=== PATIENT | female | born 1955 | race Caucasian/White ===

== ENCOUNTER 2017-11-26 12:11 | Inpatient (IN) | payer BC, SELFPAY | END 2017-11-29 15:20 | disposition home health service (06) | DRG 470 | LOC: 2ND 11-29 15:40 | PROVIDERS: Admitting Provider Orthopaedic Surgery; Emergency Provider Emergency Medicine; Visit Provider Orthopaedic Surgery | DX: S72.011A Unspecified intracapsular fracture of right femur, initial encounter for closed fracture (principal); B96.1 Klebsiella pneumoniae [K. pneumoniae] as the cause of diseases classified elsewhere; N39.0 Urinary tract infection, site not specified; W18.39XA Other fall on same level, initial encounter; Y93.K1 Activity, walking an animal; Y92.480 Sidewalk as the place of occurrence of the external cause; I44.7 Left bundle-branch block, unspecified | CPT/HCPCS: 27130; 36415; 71010; 73502; 80048; 80053; 81001; 85025; 86850; 86900; 86901; 86920; 86922; 87086; 87088; 87186; 93005; 94760; 96374; 97162; 99285; C1713; C1776 ==

== ENCOUNTER → 2017-12-11 09:25 | Outpatient (CLI) | payer BC, SELFPAY ==
--- NOTE | 2017-12-11 09:30 | XR_ITS ---
XR hip RT 2-3V w/pelvis HISTORY: Follow-up hip replacement ITS.REASON: Right hip total arthroplasty ORDERING PHYSICIAN: Damian Dumont MD PATIENT AGE: 62 years COMPARISON: 11/26/2017 FINDINGS: Status post total hip replacement with no evidence of orthopedic complications. There is good alignment of the prosthesis with no evidence of dislocation or fracture. IMPRESSION: Status post total right hip replacement with no radiographic evidence of complication
== END ==
PROVIDERS: PCP Family Medicine; Visit Provider Orthopaedic Surgery
DX: Z47.89 Encounter for other orthopedic aftercare (principal)
CPT/HCPCS: 73502

== ENCOUNTER → 2018-01-08 10:01 | Outpatient (CLI) | payer BC, SELFPAY ==
--- NOTE | 2018-01-08 10:05 | XR_ITS ---
XR hip RT 2-3V w/pelvis HISTORY: ITS.REASON: Postop RT hip replacement ORDERING PHYSICIAN: Damian Dumont MD PATIENT AGE: 62 years COMPARISON: 12/11/2017 FINDINGS: No change status post total right hip replacement with good alignment. No fracture or dislocation. There is some increased density noted in the soft tissues superior to the greater trochanter and may be due to developing heterotopic bone formation. IMPRESSION: 1. Good alignment status post hip replacement. 2. Developing heterotopic bone formation in the greater trochanter region
== END ==
PROVIDERS: PCP Family Medicine; Visit Provider Orthopaedic Surgery
DX: Z47.89 Encounter for other orthopedic aftercare (principal)
CPT/HCPCS: 73502

== ENCOUNTER → 2018-04-08 08:56 | Outpatient (CLI) | payer BC, SELFPAY ==
--- NOTE | 2018-04-08 08:58 | XR_ITS ---
XR hip RT 2-3V w/pelvis HISTORY: Follow-up hip replacement ITS.REASON: 3 mth post op/DO NOT FROGLEG ORDERING PHYSICIAN: Damian Dumont MD PATIENT AGE: 62 years COMPARISON: 01/08/2018 FINDINGS: Status post total hip replacement with good alignment of acetabular and femoral components. There is mild heterotopic bone formation noted's superior to the greater trochanter and lateral to the acetabular component. IMPRESSION: 1. Good alignment total hip prosthesis. 2. Heterotopic bone formation
== END ==
PROVIDERS: PCP Family Medicine; Visit Provider Orthopaedic Surgery
DX: Z96.641 Presence of right artificial hip joint (principal)
CPT/HCPCS: 73502

== ENCOUNTER → 2018-06-11 08:43 | Outpatient (CLI) | payer BC, SELFPAY ==
--- NOTE | 2018-06-11 08:46 | XR_ITS ---
XR hip RT 2-3V w/pelvis HISTORY: Follow-up hip replacement ITS.REASON: S/P RIGHT TOTAL HIP ARTHROPLASTY ORDERING PHYSICIAN: Damian Dumont MD PATIENT AGE: 62 years COMPARISON: 04/08/2018 FINDINGS: Total right hip replacement once again noted in good position. Heterotopic bone noted along the lateral hip and superior to the greater trochanter as before. No acute fracture or dislocation. There is some mild sclerosis of the SI joint on the right inferiorly. IMPRESSION: 1. Status post right hip replacement with heterotopic bone formation overall not significant change. Good alignment of the prosthesis
== END ==
PROVIDERS: PCP Family Medicine; Visit Provider Orthopaedic Surgery
DX: Z96.641 Presence of right artificial hip joint (principal)
CPT/HCPCS: 73502

== ENCOUNTER 2022-07-13 08:10 | Emergency (ER) | payer BC, SELFPAY ==
--- NOTE | 2022-07-13 08:31 | XR_ITS ---
PROCEDURE INFORMATION: Exam: XR Right Clavicle, Complete Exam date and time: 07/13/2022 8:42 AM Age: 67 years old Clinical indication: Other: Clavicle; Patient HX: Pain after lifting packages at work Thursday, nkt TECHNIQUE: Imaging protocol: Radiologic exam of the Right clavicle. Complete exam. Views: Any number of views. COMPARISON: CR XR CHEST 2V 07/07/2019 9:28 AM FINDINGS: Bones/joints: No acute osseous pathology in the visualized right clavicle. Soft tissues: Unremarkable soft tissues. IMPRESSION: No acute osseous pathology in the visualized right clavicle.
[2022-07-13 08:38] VITALS: BP 172/76; PULSE 72; RESP 16; TEMP 36.4; O2SAT 97; BMI 25.8
--- NOTE | 2022-07-13 08:41 | HMH.EDUTC ---
[facility] [place] Clinical Impression: Muscle spasm Disposition: Home, Self-Care Condition on Discharge: Good Instructions: DI for Muscle Spasm, Muscle Strain Additional Instructions: *Ibuprofen von 6 hours with meal as needed for pain/inflammation *Not additional anti-inflammatory like motrin, aleve, advil with the above amount of ibuprofen. You can still take Tylenol every 4 hours as needed if you need something else for pain *Ice 20 minutes every 2 hours for the first 48 hours after the initial injury followed by moist heat every 20 minutes 3-4 times a day to affected area *Muscle relaxer every 8 hours as needed for muscle spasms but remember, it WILL cause drowsiness You cannot take it and drive, operate machinery or care for small children. *Keep this area active, no movement leads to more stiffness, However take it easy and avoid heavy lifting pushing or pulling *Follow up with you family doctor if no improvement for further treatment Prescriptions: Cyclobenzaprine HCl [Flexeril 10mg tablet] 10 mg PO Q8HP PRN 30 Days #90 tab PRN Reason: Muscle Spasm Transmission Status: Pending to [employer] #[id number] Referrals: Steffanie Sommers MD [Primary Care Provider] - As needed Time of Disposition: 09:16 Medical Decision Making - Chidi Inquiry Pt receiving controlled substance: No Chidi was queried for this patient: No Vital Signs: 07/13/22 08:38 Temperature 97.6 F Temperature Source Oral Pulse Rate [Left] 72 Respiratory Rate 16 Blood Pressure [Right Arm] 172/76 H Blood Pressure Mean [Right Arm] 108 02 Sat by Pulse Oximetry 97 - Radiology Data #1 Image(s): Clavicle Image Reviewed: Yes I have reviewed radiologist's interpretation IMPRESSION: No acute osseous pathology in the visualized right clavicle. [facility] [place] - General Stated complaint: right shoulder pain Time Seen by Provider: 07/13/22 08:41 Mode of Arrival: Ambulatory Source of Information: Patient Limitations: No Limitations Description of Symptoms (Recalled from Triage Doc. by RN): patient comes in with complaints of possible pulled muscle. patient states it is located by her collerbone, on top of shoulder on right side. 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 States that she feels like she may have pulled something in her right shoulder area States that she is having pain on her right collar bone area and in her shoulder muscle beside her neck States that she feels like she may have pulled something - Related Data Previous Rx's Medication Instructions Recorded Cyclobenzaprine HCl [Flexeril 10mg 10 mg PO Q8HP PRN 30 Days #90 tab 12/23/19 tablet] Cyclobenzaprine HCl [Flexeril 10mg 10 mg PO Q8HP PRN 30 Days #90 tab 07/13/22 tablet] Allergies Allergy/AdvReac Type Severity Reaction Status Date / Time Sulfa (Sulfonamide Allergy Intermediate ITCHING, Verified 07/13/22 08:41 Antibiotics) HIVES [SULFA (SULFONAMIDE ANTIBIOTICS)] - Worker's Comp Is this a Worker's Comp case?: No [facility] History - Hepatitis A Screen Attestation statement:: This patient has been screened for Hepatitis A risk factors. I have reviewed the patient's past medical history: Yes Laterality Cases: Right: Arthroscopy Hip, Total Hip Replacement Other Surgeries: Yes: Other (RT total hip) Amputation: No Fractures: Yes - Social History Smoking Status: Current every day smoker Tobacco Type: cigarettes # Packs/Day (cigarettes): 1 Alcohol Intake: current Alcohol Intake Frequency:: holidays/special occasions only Substance Use Type: denies use Occupational Status: employed Family Hx:: Non-contributory R
[2022-07-13 09:23] VITALS: BP 172/76; PULSE 72; RESP 16; TEMP 36.4
== END 2022-07-13 09:24 | disposition home or self-care (01) ==
PROVIDERS: Emergency Provider Nurse Practitioner; PCP Family Medicine
DX: M62.838 Other muscle spasm (principal)
CPT/HCPCS: 73000; 99212; G0463

== ENCOUNTER 2022-08-12 08:33 | Emergency (ER) | payer BC, SELFPAY ==
[2022-08-12 09:10] VITALS: BP 107/73; PULSE 81; RESP 19; TEMP 36.8; O2SAT 98; BMI 25.4
--- NOTE | 2022-08-12 09:16 | XR_ITS ---
FINAL REPORT CLINICAL HISTORY: congestion, cough, smoker, no surgeries COMPARISON: July 07, 2019 FINDINGS: Two views of the chest were obtained. The heart size and pulmonary vascularity are within normal limits. The mediastinum is normal. The lungs are hyperinflated consistent with COPD. There is mild scarring. There is no pneumothorax. The bony thorax is intact. IMPRESSION: No acute cardiopulmonary process. Reviewed, Interpreted and Dictated by Alphonso Hung III, MD Transcribed by Maximiliano Almonte Authenticated and [facility]
--- NOTE | 2022-08-12 09:29 | EXP.UTC ---
Discharge Plan Disposition Patient Disposition: Home, Self-Care Condition: Good Prescriptions Prescriptions: New etodolac 200 mg capsule 200 mg PO Q8H PRN (Reason: pain) Qty: 20 0RF No Action cyclobenzaprine 10 MG tablet 10 mg PO Q8HP PRN (Reason: Muscle Spasm) 30 Days Qty: 90 0RF cyclobenzaprine 10 MG tablet 10 mg PO Q8HP PRN (Reason: Muscle Spasm) 30 Days Qty: 90 0RF Referrals Follow up/Referrals: Steffanie Sommers MD [Primary Care Provider] - See instructions Activity Restrictions/Add. Instructions Additional Instructions/Restrictions: Continue taking Muscle relaxers as prescribed Warm compresses on Back may help Follow up with the Family Doctor if no improvement or any worsening symptoms Return if needed Straight to ER if any life threatening symptoms Clinical Impressions Clinical Impression: Muscle spasm Instructions Patient Instructions: DI for Muscle Spasm, Etodolac Discharge ED Provider: Brook Arredondo [facility] [place] General Stated complaint: back pain, no accident Mode of Arrival: Ambulatory Source of Information: Patient Limitations: No Limitations Time Seen by Provider: 08/12/22 09:29 Description of Symptoms (Recalled from Triage Doc. by RN): PATIENT C/O MUSCLE SPASMS IN BACK HEENT Symptoms (Recalled from RN notes): No Resp Symptoms (Recalled from RN notes): No Skin Symptoms (Recalled from RN notes): No MS Symptoms (Recalled from RN notes): Yes Functional Status (Recalled from RN notes): WNL History of Present Illness Provider Complaint: Patient states she was seen about a month ago for muscle spasms in her back States that she was given muscle relaxers and they have helped some but she is still having pain at times with certain movements States that she wanted to get a chest xray to make sure that she doesnt have pneumonia or something Denies known injury States that she has done some heavy lifting at work Related Data Previous Rx's Medication Instructions Recorded cyclobenzaprine 10 mg tablet 10 mg PO Q8HP PRN Muscle Spasm 30 12/23/19 days #90 tabs cyclobenzaprine 10 mg tablet 10 mg PO Q8HP PRN Muscle Spasm 30 07/13/22 days #90 tabs etodolac 200 mg capsule 200 mg PO Q8H PRN pain #20 caps 08/12/22 Allergies Allergy/AdvReac Type Severity Reaction Status Date / Time Sulfa (Sulfonamide Allergy Intermediate ITCHING, Verified 07/13/22 08:41 Antibiotics) HIVES [SULFA (SULFONAMIDE ANTIBIOTICS)] Worker's Comp Is this a Worker's Comp case?: No [facility] Medical History (Updated 08/12/22 @ 10:02 by Brook Arredondo APRN) Migraine Surgical History (Updated 08/12/22 @ 09:24 by Brittney Nowak, RN) History of bladder surgery History of right hip replacement Social History (Updated 08/12/22 @ 09:24 by Brittney Nowak RN) Smoking Status: Current every day smoker tobacco type: cigarettes packs per day: 1 alcohol intake: current substance use type: denies use current occupational status: employed Travel in the last 8 weeks: None ROS Obtained: Yes All systems reviewed & no additional complaints except as documented and Yes Systems reviewed as appropriate & no additional complaints except as documented ENT Ears, Nose, Mouth, and Throat: Reports system reviewed and no additional complaints, except as documented and Reports as per HPI Cardiovascular Cardiovascular: Reports system reviewed and no additional complaints, except as documented, Reports as per HPI, Denies chest pain, Denies dyspnea on exertion and Denies edema Respiratory Respiratory: Reports system reviewed and no additional complaints, except as documented, Reports as per HPI, Denies shortness of breath, Denies change in phlegm color, Denies chest congestion, Reports cough (reports is a smoker has everyday cough ) and Denies dyspnea on exertion Gastrointestinal Gastrointestingal: Reports system reviewed and no additional complaints, except as documented and as per HPI Musculoskeletal Mu
[2022-08-12 10:10] VITALS: BP 107/73; PULSE 81; RESP 19; TEMP 36.8; O2SAT 98
== END 2022-08-12 10:14 | disposition home or self-care (01) ==
PROVIDERS: Emergency Provider Nurse Practitioner; PCP Family Medicine
DX: M62.830 Muscle spasm of back (principal)
CPT/HCPCS: 71046; 99212; G0463

== ENCOUNTER 2022-11-03 19:41 | Emergency (ER) | payer BC, SELFPAY ==
[2022-11-03 19:42] VITALS: BP 154/82; PULSE 58; RESP 18; TEMP 37; O2SAT 98; BMI 25.3
--- NOTE | 2022-11-03 21:20 | ECG_ITS ---
APPROVED REPORT Exam: Resting ECG HR:56 bpm ECG Measurements Heart Rate 56 AXES NC 148 P 81 QRSd 144 QRS 84 QT 492 T 70 QTc 483 Conclusion SINUS BRADYCARDIA INTRAVENTRICULAR CONDUCTION DELAY [130+ ms QRS DURATION] ABNORMAL ECG UNCONFIRMED REPORT Electronically signed by : Ramez Hill MD 11/04/2022 20:55:14
--- NOTE | 2022-11-03 21:25 | XR_ITS ---
PROCEDURE INFORMATION: Exam: XR Chest Exam date and time: 11/03/2022 9:32 PM Age: 67 years old Clinical indication: Shortness of breath; Additional info: SOA TECHNIQUE: Imaging protocol: Radiologic exam of the chest. Views: 2 views. COMPARISON: CR XR CHEST 2V 08/12/2022 9:26 AM FINDINGS: Lungs: No evidence of pneumonia or interstitial edema. Pleural spaces: Unremarkable. No pleural effusion. No pneumothorax. Heart/Mediastinum: Unremarkable. No cardiomegaly. Bones/joints: Unremarkable. IMPRESSION: No evidence of pneumonia or interstitial edema.
[2022-11-03 21:32] LABS: Basophils # 0.1 K/mm3 (0-0.2); Basophils % 2.1 % (0.1-2.0); Eosinophils # 0.1 K/mm3 (0.0-0.4); Eosinophils % 3.5 % (0.1-12.0); Hematocrit 48.7 % (37.0-47.0); Hemoglobin 16.4 g/dL (12.2-16.2); Lymphocytes # 1.9 K/mm3 (0.7-4.5); Lymphocytes % 49.5 % (10-50); Mean Corpuscular HGB Conc 33.6 g/dL (31.8-35.4); Mean Corpuscular Hemoglobin 31.4 pg (27.0-31.2); Mean Corpuscular Volume 93.3 fl (81-99); Mean Platelet Volume 7.4 fl (7.4-10.4); Monocytes # 0.3 K/mm3 (0.1-1.0); Monocytes % 8.2 % (1.7-9.3); Neutrophils # 1.4 K/mm3 (1.8-7.8); Neutrophils % 36.7 % (37.0-80.0); Platelet Count 335 K/mm3 (142-424); Red Blood Count 5.22 M/mm3 (4.20-5.40); Red Cell Distribution Width 13.1 % (11.5-17.5); White Blood Count 3.8 K/mm3 (4.8-10.8)
[2022-11-03 21:32] LABS: Influenza A, PCR Not Detected (NotDetected); Influenza B, PCR Not Detected (NotDetected)
[2022-11-03 21:36] LABS: Alanine Aminotransferase 30 U/L (12-78); Albumin Level 4.8 g/dl (3.5-5.0); Albumin/Globulin Ratio 1.5 (1.1-1.8); Alkaline Phosphatase 132 U/L (38-126); Anion Gap 1.4 mEq/L (5-15); Aspartate Amino Transferase 39 U/L (14-36); Bilirubin,Total 0.5 mg/dl (0.2-1.3); Blood Urea Nitrogen 10 mg/dl (7-17); Calcium 10.1 mg/dl (8.4-10.2); Carbon Dioxide 28 mmol/L (22.0-30.0); Chloride 104 mmol/L (98-107); Creatinine Clearance Estimated 65 mL/min (50-200); Estimated Glomerular Filt Rate 84 ml/min (>60); GFR (African American) 102 ML/MIN (>60); Globulin 3.3 g/dL (1.3-3.2); Glucose 111 mg/dl (74-100); Potassium 3.4 mmoL/L (3.5-5.1); Sodium 130 mmol/L (136-145); Total Protein,Serum 8.1 g/dl (6.3-8.2)
[2022-11-03 21:41] LABS: C-Reactive Protein 4.6 mg/L (0-4)
[2022-11-03 21:54] LABS: Procalcitonin 0.044 ng/mL (0.0-2.0)
[2022-11-03 22:04] LABS: Troponin I < 0.01 ng/ml (0.00-0.034)
[2022-11-03 22:20] LABS: Coronavirus 19, PCR Detected (NotDetected)
[2022-11-03 22:21] LABS: Erythrocyte Sedimentation Rate 17 mm/hr (0-30)
--- NOTE | 2022-11-03 22:39 | HMH.EDSOB ---
Discharge Plan Disposition Patient Disposition: Home, Self-Care Chief Complaint: Shortness of Breath/Dyspnea Prescriptions Prescriptions: No Action etodolac 200 mg capsule 200 mg PO Q8H PRN (Reason: pain) Qty: 20 0RF cyclobenzaprine 10 MG tablet 10 mg PO Q8HP PRN (Reason: Muscle Spasm) 30 Days Qty: 90 0RF cyclobenzaprine 10 MG tablet 10 mg PO Q8HP PRN (Reason: Muscle Spasm) 30 Days Qty: 90 0RF Referrals Follow up/Referrals: Provider,Referral, MD [Primary Care Provider] - See instructions Clinical Impressions Clinical Impression: COVID-19 Instructions Patient Instructions: DI for COVID-19 (Suspected or Confirmed ) Discharge ED Provider: Red Echeverria Resp/SOB HPI General Chief Complaint: Shortness of Breath/Dyspnea Stated Complaint: SOA, h/a, weakness Time Seen by Provider: 11/03/22 22:39 Mode of Arrival: Ambulatory Source of Information: Patient Limitations: No Limitations Description of Symptoms (Recalled from ER Triage Doc. 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 Complaint: cough Onset (ago): day(s) Severity: moderate Consistency/Duration: intermittent Associated symptoms: denies other symptoms Treatment prior to arrival: none Related Data Home oxygen amount: none Previous Rx's Medication Instructions Recorded cyclobenzaprine 10 mg tablet 10 mg PO Q8HP PRN Muscle Spasm 30 12/23/19 days #90 tabs cyclobenzaprine 10 mg tablet 10 mg PO Q8HP PRN Muscle Spasm 30 07/13/22 days #90 tabs etodolac 200 mg capsule 200 mg PO Q8H PRN pain #20 caps 08/12/22 Allergies Allergy/AdvReac Type Severity Reaction Status Date / Time Sulfa (Sulfonamide Allergy Intermediate ITCHING, Verified 07/13/22 08:41 Antibiotics) HIVES [SULFA (SULFONAMIDE ANTIBIOTICS)] [facility] Disclaimer: The information contained in this section may have been updated after the patient was seen, as this information can be updated by other users. Medical History (Updated 11/03/22 @ 22:49 by Red Echeverria MD) Migraine Surgical History (Updated 08/12/22 @ 09:24 by Brittney Nowak RN) History of bladder surgery History of right hip replacement Social History (Updated 08/12/22 @ 09:24 by Brittney Nowak RN) Smoking Status: Current every day smoker tobacco type: cigarettes packs per day: 1 alcohol intake: current substance use type: denies use current occupational status: employed Travel in the last 8 weeks: None ROS Obtained: Yes All systems reviewed & no additional complaints except as documented Physical Exam General General appearance: alert Head Head exam: normocephalic Eye Eye exam: Present PERRL and EOMI ENT ENT exam: Present mucous membranes moist Neck Neck exam: Absent trachea midline Respiratory Respiratory exam: Absent respiratory distress Cardiovascular Cardiovascular exam: Present regular rate Abdominal Exam Abdominal exam: Present soft Extremities Exam Extremities exam: Present full ROM Neurological Exam Neurological exam: Present alert, oriented X3 and CN II-XII intact Psychiatric Psychiatric exam: Present normal affect Skin Skin exam: Absent rash Medical Decision Making Medical Records Medical records reviewed: Yes I reviewed the patient's medical records. Chidi Inquiry Pt receiving controlled substance: No Vital Signs: 11/03/22 19:42 Temperature 98.6 F Temperature Source Oral Pulse Rate [Right] 58 L Respiratory Rate 18 Blood Pressure [Right Arm] 154/82 H Blood Pressure Mean [Right Arm] 106 02 Sat by Pulse Oximetry 98 Lab Data Lab results reviewed: Yes I reviewed the patient's lab results. Lab Results 11/03/22 21:05: WBC 3.8 L, RBC 5.22, Hgb 16.4 H, Hct 48.7 H, MCV 93.3, MCH 31.4 H, MCHC 33.6, RDW 13.1, Plt Count 335, MPV 7.4, Neut % (Auto) 36.7 L, Lymph % (Auto) 49.5, Charlton % (Auto) 8.2, Eos % (Auto) 3.5, Baso % (Auto) 2.1
--- NOTE | 2022-11-03 22:50 | PC.NURSE ---
Dr. Echeverria at
[2022-11-03 23:08] VITALS: BP 125/78; PULSE 88; RESP 18; TEMP 36.8; O2SAT 98
[2022-11-03 23:13] VITALS: BP 149/78; PULSE 60; RESP 18; TEMP 37; O2SAT 98
== END 2022-11-03 23:15 | disposition home or self-care (01) ==
PROVIDERS: Emergency Provider Emergency Medicine
DX: U07.1 COVID-19 (principal)
CPT/HCPCS: 71046; 80053; 84145; 84484; 85025; 85651; 86140; 96365; 96375; 99284; 99285; C9803; J2405; U0003; U0005

== ENCOUNTER 2023-07-30 13:03 | Emergency (ER) | payer BC, SELFPAY ==
[2023-07-30 13:05] VITALS: BP 182/90; PULSE 105; RESP 19; TEMP 36.8; O2SAT 98; BMI 27.4
--- NOTE | 2023-07-30 13:22 | EXP.UTC ---
Discharge Plan Disposition Patient Disposition: Home, Self-Care Condition: Good Prescriptions Prescriptions: New ciprofloxacin HCl [Cipro] 500 mg tablet 500 mg PO BID 7 Days Qty: 14 0RF cyclobenzaprine 10 mg Tablet 10 mg PO BID PRN (Reason: Muscle Spasm) Qty: 20 0RF phenazopyridine [Pyridium] 200 mg tablet 200 mg PO Q8H 2 Days Qty: 6 0RF methylprednisolone 4 mg Tablets,Dose Pack 4 mg PO DIRECTED Qty: 21 0RF No Action etodolac 200 mg capsule 200 mg PO Q8H PRN (Reason: pain) Qty: 20 0RF ondansetron HCl 4 mg Tablet 4 mg PO Q8H PRN (Reason: Nausea And Vomiting) Qty: 30 0RF cyclobenzaprine 10 MG tablet 10 mg PO Q8HP PRN (Reason: Muscle Spasm) 30 Days Qty: 90 0RF cyclobenzaprine 10 MG tablet 10 mg PO Q8HP PRN (Reason: Muscle Spasm) 30 Days Qty: 90 0RF Referrals Follow up/Referrals: Provider,Referral, MD [Primary Care Provider] - See instructions Activity Restrictions/Add. Instructions Additional Instructions/Restrictions: Go home and rest. It would be best if you rested tomorrow too. No heavy lifting. No twisting. Take the oral medications as directed. The muscle relaxer (cyclobenzaprine--Flexeril) will make you drowsy, so don't drive or operate heavy machinery after taking it. Don't start the oral steroids (medrol dose pack) until tomorrow, since you had the shots in here today. Follow up with your regular doctor. GO TO THE ER FOR ANY WORSENING SYMPTOMS OR CONCERN, ESPECIALLY BOWEL OR BLADDER ISSUES, SADDLE AREA NUMBNESS, FEVER, ETC The pyridium will make your urine turn orange, this is an expected side effect. It will stain your clothes if it comes into contact with them. We will culture the urine. That will tell what bacteria is causing your infection and which antibiotics will treat it best. Sometimes the first antibiotic we prescribe turns out to not work against different bacteria. So, make sure you follow up within 3 days if you are not getting better. Clinical Impressions Clinical Impression: UTI (urinary tract infection), Muscle spasm, Low back pain Stand Alone Forms Stand Alone Forms: Work/School Release Discharge ED Provider: Damian ArenasH [facility] HPI General Stated complaint: neck and back pain Mode of Arrival: Ambulatory Source of Information: Patient Limitations: No Limitations Time Seen by Provider: 07/30/23 13:22 Description of Symptoms (Recalled from Triage Doc. by RN): PATIENT C/O MUSCLE SPASMS TO BILATERAL SHOULDER BLADES, NECK, AND LOWER BACK THAT STARTED THURSDAY. SHE STATES SHE BELIEVES TAKING TRASH OUT CAUSED IT. SHE ALSO REQUESTS TO BE CHECKED FOR UTI HEENT Symptoms (Recalled from RN notes): No Resp Symptoms (Recalled from RN notes): No Skin Symptoms (Recalled from RN notes): No MS Symptoms (Recalled from RN notes): Yes Functional Status (Recalled from RN notes): WNL History of Present Illness Provider Complaint: She states that she has been having muscle spasms and upper back pain for the past 3 days. She denies any injury or fall. She has also had low back pain, dysuria, and urinary frequency for the past 2 days. Related Data Previous Rx's Medication Instructions Recorded cyclobenzaprine 10 mg tablet 10 mg PO Q8HP PRN Muscle Spasm 30 12/23/19 days #90 tabs cyclobenzaprine 10 mg tablet 10 mg PO Q8HP PRN Muscle Spasm 30 07/13/22 days #90 tabs etodolac 200 mg capsule 200 mg PO Q8H PRN pain #20 caps 08/12/22 ondansetron HCl 4 mg tablet 4 mg PO Q8H PRN Nausea And 11/03/22 Vomiting #30 tabs ciprofloxacin HCl 500 mg tablet 500 mg PO BID 7 days #14 tabs 07/30/23 (Cipro) cyclobenzaprine 10 mg tablet 10 mg PO BID PRN Muscle Spasm #20 07/30/23 tabs methylprednisolone 4 mg tablets in 4 mg PO DIRECTED #21 tabs 07/30/23 a dose pack phenazopyridine 200 mg tablet 200 mg PO Q8H 2 days #6 tabs 07/30/23 (Pyridium) Allergies Allergy/AdvReac Type Severity Reaction Status Date / Time Sulfa (Sulfonamide Allergy Interme
[2023-07-30 13:45] VITALS: BP 182/90; PULSE 105; RESP 19; TEMP 36.8; O2SAT 98
[2023-07-30 15:03] LABS: Microscopic, Urine URINE MICROSCOPIC (MICROSCOPIC)
[2023-07-30 15:11] LABS: Appearance,Urine Slightly Cloudy (Clear); Color,Urine Yellow (Yellow); Glucose,Urine (UA) Negative (Negative); Protein,Urine Trace (Negative); Specific Gravity, Urine 1.015 (1.005-1.030)
[2023-07-30 15:12] LABS: Bilirubin,Urine Negative (Negative); Blood, Urine 2+ (Negative); Ketones,Urine Trace (Negative); Leukocyte Esterase,Urine Negative (Negative); Nitrate,Urine Positive (Negative); Urobilinogen,Urine 0.2 EU/dl (0.2)
[2023-07-30 15:23] LABS: Amorphous Sediment,Urine 2+ /lpf; Squamous Epithelial Cell,Urine 20-50 #/hpf (0-5); WBC,Urine Occasional #/hpf (0-3)
== END 2023-07-30 13:53 | disposition home or self-care (01) ==
PROVIDERS: Emergency Provider Nurse Practitioner Family
DX: N39.0 Urinary tract infection, site not specified (principal); M54.6 Pain in thoracic spine; M62.830 Muscle spasm of back; F17.210 Nicotine dependence, cigarettes, uncomplicated
CPT/HCPCS: 81001; 87086; 96372; 99212; 99214; G0463